=== PATIENT | female | born 1980 | race Caucasian/White ===

== ENCOUNTER 2022-03-30 08:29 | Emergency (ER) | payer OTHER ==
[2022-03-30] MEDS ORDERED: BACITRACIN ZINC OINT 1 PACKET TOP STA (09:32)
--- NOTE | 2022-03-30 09:35 | ED Physician Documentation ---
PD HPI UPPER EXT INJURY - Stated complaint Stated Complaint: INJURED RT FINGER - Chief complaint Chief Complaint: Laceration - History obtained from History obtained from: Patient - Additonal information Additional information: The patient comes to the emergency department with chief complaint of laceration to right small finger. She states she was washing dishes when a plate broke in her hands and cut her finger. The patient denies any difficulty moving the finger. No numbness or tingling. She is not on anticoagulants. No other injuries or complaints. Tetanus is up-to-date. Review of Systems Ten Systems: 10 systems reviewed and negative Constitutional: reports: Reviewed and negative Eyes: reports: Reviewed and negative Ears: reports: Reviewed and negative Nose: reports: Reviewed and negative Throat: reports: Reviewed and negative Cardiac: reports: Reviewed and negative Respiratory: reports: Reviewed and negative GI: reports: Reviewed and negative : reports: Reviewed and negative Skin: reports: Laceration (s) Musculoskeletal: reports: Reviewed and negative Neurologic: reports: Reviewed and negative Psychiatric: reports: Reviewed and negative Endocrine: reports: Reviewed and negative Immunocompromised: reports: Reviewed and negative PD PAST MEDICAL HISTORY - Allergies Allergies/Adverse Reactions: Allergies Allergy/AdvReac Type Severity Reaction Status Date / Time No Known Drug Allergies Allergy Verified 03/30/22 08:36 PD ED PE NORMAL - Vitals Vital signs reviewed: Yes - General General: Alert and oriented X 3, No acute distress, Well developed/nourished - HEENT HEENT: Atraumatic, PERRL, EOMI, Moist mucous membranes - Neck Neck: Supple, no meningeal sign - Cardiac Cardiac: Strong equal pulses - Respiratory Respiratory: No respiratory distress - Derm Derm: Warm and dry, Other (1.5 cm laceration to flexor crease of right small finger PIP joint. Subcutaneous fat visible in wound. No tendon noted in floor of wound.) - Extremities Extremities: No deformity, Other (Full range of motion right small finger with flexion and extension.) - Neuro Neuro: Alert and oriented X 3, cut off saw tender metal 2-12 intact, No motor deficit, No sensory deficit, Normal speech - Psych Psych: Normal mood, Normal affect Results - Vitals Vitals: Vital Signs - 24 hr 03/30/22 08:36 Temperature 36.7 C Heart Rate 80 Respiratory 19 Rate Blood Pressure 117/72 O2 Saturation 99 Oxygen O2 Source Room air Procedures - Laceration (location) Right small finger Length in cm: 1.5 Wound type: Linear, Into subcut fat, Clean Neurovascular status: Sensory intact, Motor intact, Vascular intact Tendon involvement: Other (Tendon not visualized in floor of wound. Function intact.) Anesthesia: Lidocaine 1% Wound preparation: Hibiclens, Irrigated copiously NS, Wound explored, To the base Skin layer closure: Nylon, Interrupted, Size #-0 - enter number (5.0), Sutures - enter # (3) Other: Patient tolerated well, No complications, Neurovascular intact, Dressing applied, Tetanus UTD PD MEDICAL DECISION MAKING - ED course Complexity details: considered differential, d/w patient ED course: The patient's laceration was repaired as above. Bacitracin and dressing were applied. We have discussed wound care management at home, as well as the timeline for reevaluation and suture removal. We have discussed the usual indications for return. Departure - Departure Disposition: 01 Home, Self Care Clinical Impression: Laceration Condition: Stable Instructions: ED Laceration Hand Comments: Your laceration has been repaired with 3 synthetic sutures. This means that the y will need to be removed once the cut is healed. You should be seen in 7 days to have your wound rechecked sutures removed. You may be seen in urgent care/walk-in, or by your primary care physician. If he cannot be seen in any of these venues, please follow-up in the emergency department. You may let water and soap run over the wound but please do not rub, scrub, or immerse the wound. This is in order to prevent infection. If you begin to notice redness and swelling spreading progressively away from the wound, or if the wound had been dry, but splits open and looks "mushy", please have it rechecked.
[2022-03-30 09:49] VITALS: BP 114/78
== END 2022-03-30 09:49 | disposition home or self-care (01) ==
LOC: ED 08:29
DX: S61.216A Laceration without foreign body of right little finger without damage to nail, initial encounter (principal); W25.XXXA Contact with sharp glass, initial encounter; Y93.G1 Activity, food preparation and clean up
CPT/HCPCS: 12005; 99282